=== PATIENT | male | born 1950 | race African-American/Black ===

== ENCOUNTER 2024-02-19 17:39 | Inpatient (IN) | payer MEDICARE, MEDICAID ==
[~2024-02-19] VITALS: Ht 175.3 cm; Wt 104.3 kg
[2024-02-19 18:06] LABS: BASOPHILS % 0.6 % (0.0-2.0); EOSINOPHILS % 0.1 % (0.0-5.0); HEMATOCRIT. 36.9 % (42.0-52.0); HEMOGLOBIN. 11.8 g/dL (14.0-18.0); LYMPHOCYTES % 22.8 % (20.0-50.0); MEAN CORPUSCULAR HEMOGLOBIN 28.2 pg (28.0-32.0); MEAN CORPUSCULAR VOLUME 88.1 fL (80.0-94.0); MEAN PLATELET VOLUME 8.2 fl (7.4-10.4); MONOCYTES % 7.2 % (2.0-8.0); NEUTROPHILS % 69.3 % (40.0-76.0); PLATELET 742 x1000/uL (130-400); RED BLOOD CELL COUNT 4.19 mill/uL (4.7-6.1); RED CELL DISTRIBUTION WIDTH 17.1 % (11.6-14.6); WHITE BLOOD COUNT 14.6 x1000/uL (4.5-11.0)
[2024-02-19 18:09] LABS: CHLORIDE 98 mEq/L (98-107); POTASSIUM 3.5 mEq/L (3.5-5.1); SODIUM 133 mEq/L (136-145)
[2024-02-19 18:10] LABS: CALCIUM 9.8 mg/dL (8.7-10.4); CARBON DIOXIDE 24 mEq/L (21-32)
[2024-02-19 18:15] LABS: CREATININE 1.1 mg/dL (0.6-1.3); GLUCOSE 146 mg/dL (70-105); UREA NITROGEN BLOOD 28 mg/dL (9-23)
[2024-02-19] MEDS: SODIUM CHLORIDE 0.9% 1000ML BAG (SEPSIS BOLUS) IV ONE (18:26)
[2024-02-19] MEDS: PIPERACILLIN/TAZO 3.375G/50ML 50 ML IV SCH (22:21)
[2024-02-20] MEDS ORDERED: LEVO150T8 MT (01:25)
[2024-02-20] MEDS ORDERED: NA P230E RC (01:25)
[2024-02-20] MEDS ORDERED: BISA10SU62 RC (01:25)
[2024-02-20] MEDS ORDERED: MOM PO (01:25)
[2024-02-20] MEDS ORDERED: LORA10TA7 PO (01:25)
[2024-02-20] MEDS ORDERED: ASCO500C18 MT (01:25)
[2024-02-20] MEDS ORDERED: MELA1TAB28 MT (01:25)
[2024-02-20] MEDS ORDERED: APIX5TAB PO (01:25)
[2024-02-20] MEDS ORDERED: FINA5TAB11 MT (01:25)
[2024-02-20] MEDS ORDERED: BICT1TAB PO (01:25)
[2024-02-20] MEDS ORDERED: ATOR10TA69 PO (01:25)
[2024-02-20] MEDS ORDERED: MULT-230 MT (02:05)
[2024-02-20] MEDS ORDERED: PREG75CA PO (02:05)
[2024-02-20] MEDS ORDERED: OXYC-485 PO (02:05)
[2024-02-20] MEDS ORDERED: OXYC5CAP22 PO (02:05)
[2024-02-20] MEDS ORDERED: NALO4SPR BOTHNSTRLS (02:05)
[2024-02-20] MEDS ORDERED: MUPI15CR11 TP (02:05)
[2024-02-20] MEDS ORDERED: COLL30OI TP (02:05)
[2024-02-20] MEDS ORDERED: MUPI1OIN4 TP (02:05)
[2024-02-20] MEDS ORDERED: DYZ MT (02:10)
[2024-02-20] MEDS ORDERED: ONDANSETRON HCL 4MG/2ML INJ IV PRN (07:00)
[2024-02-20] MEDS ORDERED: CLONIDINE 0.1MG TABLET PO PRN (07:00)
[2024-02-20] MEDS ORDERED: ACETAMINOPHEN 325MG TABLET PO PRN (07:00)
[2024-02-20] MEDS ORDERED: NITROGLYCERIN 0.4MG TABLET SL SL PRN (07:00)
[2024-02-20] MEDS ORDERED: GUAIFENESIN 200MG/10ML SUGAR FREE UDC PO PRN (07:00)
[2024-02-20] MEDS ORDERED: MAGNESIUM/ALUMINUM HYDROXIDE/SIMETHICONE 30ML UDC PO PRN (07:00)
[2024-02-20] MEDS ORDERED: IPRATROPIUM/ALBUTEROL 0.5-3(2.5)MG/3ML NEB NEB PRN (07:00)
[2024-02-20 10:44] LABS: IRON 22 ug/dL (65-175)
[2024-02-20 10:45] LABS: TRIGLYCERIDE 79 mg/dL (0-150)
[2024-02-20 10:46] LABS: LDL CHOLESTEROL 76 mg/dL (5-100)
[2024-02-20 10:47] LABS: CHOLESTEROL 110 mg/dL (<200); HDL CHOLESTEROL 24 mg/dL (>55)
[2024-02-20] MEDS: VANCOMYCIN 1.5GM/250ML IV NR (10:48)
[2024-02-20] MEDS: MEROPENEM 1G/100ML 100 ML IV SCH (10:48)
[2024-02-20] MEDS: LACTATED RINGERS 1,000 ML IV SCH (10:49)
[2024-02-20 10:50] LABS: T4 FREE 1.54 ng/dL (0.89-1.76); THYROID STIMULATING HORMONE 4.94 uIU/mL (0.55-4.78)
[2024-02-20] MEDS: ENOXAPARIN 40MG/0.4ML SYR SUBCUT SCH (10:55)
[2024-02-20] MEDS: ASCORBIC ACID 500 MG TABLET PO SCH (10:56)
[2024-02-20] MEDS: FAMOTIDINE 20MG TABLET PO SCH (10:56)
[2024-02-20] MEDS: DOCUSATE SODIUM 100MG CAPSULE PO PRN (10:57)
[2024-02-20 11:10] LABS: FOLIC ACID (FOLATE) SERUM > 20.00 ng/mL (>5.38)
[2024-02-20 11:11] LABS: VITAMIN B12 SERUM 361 pg/mL (211-911)
[2024-02-20 11:40] LABS: TOTAL IRON BINDING CAPACITY > 670 ug/dl (250-425)
[2024-02-20] MEDS: KETOROLAC 15MG/ML VIAL IV PRN (11:53)
[2024-02-20] MEDS: ZOLPIDEM TARTRATE 5MG TABLET PO PRN (12:06)
[2024-02-20] MEDS: ZINC SULFATE 220 MG ( 50 ) CAPSULE PO SCH (15:44)
[2024-02-20 17:07] LABS: CREATINE KINASE 358 IU/L (46-171)
[2024-02-20 17:09] LABS: CREATINE KINASE MB FRACTION 1.2 ng/mL (0.5-3.6)
[2024-02-20 17:10] LABS: TROPONIN I HIGH SENSITIVITY 4 ng/L (3.0-53)
[2024-02-20 19:00] VITALS: BP 98/62; PULSE 97; RESP 18; TEMP 36.9474; O2SAT 95
[2024-02-20 20:00] VITALS: BP 108/55; PULSE 81; RESP 18; TEMP 35.61396; O2SAT 100
[2024-02-20] MEDS: VANCOMYCIN 750MG/150ML (BAXTER) IV SCH (21:40)
[2024-02-21] VITALS: BP 147/105; PULSE 84; RESP 18; TEMP 36.83628; O2SAT 96
[2024-02-21 04:00] VITALS: BP 97/64; PULSE 89; RESP 18; TEMP 36.28068; O2SAT 98
[2024-02-21 06:26] LABS: CHLORIDE 103 mEq/L (98-107); POTASSIUM 2.9 mEq/L (3.5-5.1); SODIUM 136 mEq/L (136-145)
[2024-02-21 06:28] LABS: CREATINE KINASE MB FRACTION 0.5 ng/mL (0.5-3.6)
[2024-02-21 06:30] LABS: CALCIUM 9.2 mg/dL (8.7-10.4); CARBON DIOXIDE 24 mEq/L (21-32)
[2024-02-21 06:33] LABS: ALANINE AMINOTRANSFERASE 33 IU/L (10-49)
[2024-02-21 06:35] LABS: BASOPHILS % 0.4 % (0.0-2.0); CREATININE 0.7 mg/dL (0.6-1.3); EOSINOPHILS % 0.9 % (0.0-5.0); GLUCOSE 125 mg/dL (70-105); HEMATOCRIT. 31.4 % (42.0-52.0); HEMOGLOBIN. 10.2 g/dL (14.0-18.0); LYMPHOCYTES % 16.9 % (20.0-50.0); MEAN CORPUSCULAR HEMOGLOBIN 28.6 pg (28.0-32.0); MEAN CORPUSCULAR HGB CONC 32.5 g/dL (31.0-37.0); MEAN CORPUSCULAR VOLUME 87.8 fL (80.0-94.0); MEAN PLATELET VOLUME 8.4 fl (7.4-10.4); MONOCYTES % 7.8 % (2.0-8.0); PLATELET 600 x1000/uL (130-400); RED BLOOD CELL COUNT 3.58 mill/uL (4.7-6.1); RED CELL DISTRIBUTION WIDTH 17.5 % (11.6-14.6); UREA NITROGEN BLOOD 18 mg/dL (9-23); WHITE BLOOD COUNT 11.2 x1000/uL (4.5-11.0)
[2024-02-21 06:36] LABS: ALBUMIN 3.5 g/dL (3.2-4.8); ASPARTATE AMINOTRANSFERASE 43 IU/L (<34)
[2024-02-21 06:37] LABS: BILIRUBIN TOTAL 0.7 mg/dL (0.1-1.0); CREATINE KINASE 166 IU/L (46-171); PHOSPHORUS 3.1 mg/dL (2.5-4.9); PROTEIN TOTAL 6.8 g/dL (6.0-8.3)
[2024-02-21 06:49] LABS: TROPONIN I HIGH SENSITIVITY < 4 ng/L (3.0-53)
[2024-02-21 08:00] VITALS: BP 97/55; PULSE 81; RESP 18; TEMP 36.61404; O2SAT 100
[2024-02-21 12:00] VITALS: BP 111/57; PULSE 66; RESP 18; TEMP 36.50292; O2SAT 97
[2024-02-21 13:07] LABS: ABSOLUTE LYMPHOCYTES 3.2 x10E3/uL (0.7-3.1); ABSOLUTE MONOCYTES 1.1 x10E3/uL (0.1-0.9); ABSOLUTE NEUTROPHILS 11.3 x10E3/uL (1.4-7.0); BASOPHILS 0 % (Not Estab.); EOSINOPHILS 0 % (Not Estab.); HEMATOCRIT 37.4 % (37.5-51.0); HEMOGLOBIN 11.4 g/dL (13.0-17.7); IMMATURE GRANULOCYTES 1 % (Not Estab.); IMMATURE GRANULOCYTES ABSOLUTE 0.1 x10E3/uL (0.0-0.1); LYMPHOCYTES 20 % (Not Estab.); MEAN CORPUSCULAR HEMOGLOBIN 28.1 pg (26.6-33.0); MEAN CORPUSCULAR HGB CONC. 30.5 g/dL (31.5-35.7); MEAN CORPUSCULAR VOLUME 92 fL (79-97); MONOCYTES 7 % (Not Estab.); NEUTROPHILS 72 % (Not Estab.); PLATELETS 684 x10E3/uL (150-450); RBC 4.06 x10E6/uL (4.14-5.80); RED CELL DISTRIBUTION WIDTH 15.1 % (11.6-15.4); WBC 15.7 x10E3/uL (3.4-10.8)
[2024-02-21] MEDS ORDERED: LIDOCAINE HCL 1% 10 MG/ML 10ML VIAL ONE ×2 (13:10→14:05)
[2024-02-21] MEDS ORDERED: IOHEXOL-300 50 ML BOTTLE IV ONE (13:51)
[2024-02-21] MEDS: SODIUM HYPOCHLORITE (0.25%) 480ML SOLUTION (HALF STRENGTH) TOP SCH (14:46)
[2024-02-21] MEDS ORDERED: POTASSIUM CHLORIDE 20 MEQ in DEXT 5% WATER 90 ML IV ONE (15:30)
[2024-02-21] MEDS: POTASSIUM CHLORIDE 20MEQ TABLET SR PO NR (15:54)
[2024-02-21 16:00] VITALS: BP 160/107; PULSE 105; RESP 18; TEMP 36.50292; O2SAT 97
[2024-02-21 17:06] LABS: % CD 3 POS. LYMPHOCYTES 57.3 % (57.5-86.2); % CD 4 POS. LYMPHOCYTES 27.1 % (30.8-58.5); % CD 8 POS. LYMPH 35.4 % (12.0-35.5); ABSOLUTE CD 3 1834 /uL (622-2402); ABSOLUTE CD 4 HELPER 867 /uL (359-1519); ABSOLUTE CD 8 SUPPRESSOR 1133 /uL (109-897); CD4/CD8 RATIO 0.77 (0.92-3.72)
[2024-02-21] MEDS: KCL 20MEQ/100ML X 2 FOR TOTAL KCL 40MEQ/200ML IV SCH (17:17)
[2024-02-21 20:00] VITALS: BP 109/74; PULSE 60; RESP 18; TEMP 37.33632; O2SAT 97
[2024-02-22] VITALS: BP 107/70; PULSE 84; RESP 20; TEMP 37.44744; O2SAT 100
[2024-02-22 04:00] VITALS: BP 112/78; PULSE 80; RESP 20; TEMP 37.16964; O2SAT 100
[2024-02-22 06:39] LABS: CHLORIDE 104 mEq/L (98-107); POTASSIUM 4.3 mEq/L (3.5-5.1); SODIUM 135 mEq/L (136-145)
[2024-02-22 06:40] LABS: CALCIUM 9.1 mg/dL (8.7-10.4); CARBON DIOXIDE 22 mEq/L (21-32)
[2024-02-22 06:45] LABS: CREATININE 0.6 mg/dL (0.6-1.3); GLUCOSE 108 mg/dL (70-105); UREA NITROGEN BLOOD 12 mg/dL (9-23)
[2024-02-22 08:00] VITALS: BP 100/58; PULSE 60; RESP 18; TEMP 37.11408; O2SAT 97
[2024-02-22 12:04] VITALS: BP 104/53; PULSE 90; RESP 18; TEMP 37.05852; O2SAT 99
[2024-02-22] MEDS: KETOROLAC 15MG/ML VIAL IV PRN (12:09)
[2024-02-22 16:00] VITALS: BP 115/70; PULSE 65; RESP 18; TEMP 36.61404; O2SAT 96
[2024-02-22 20:00] VITALS: BP 99/61; PULSE 83; RESP 18; TEMP 36.22512
[2024-02-23] VITALS: BP 100/72; PULSE 82; RESP 20; TEMP 36.22512
[2024-02-23 04:00] VITALS: BP 101/62; PULSE 85; RESP 20; TEMP 36.33624; O2SAT 96
[2024-02-23 08:00] VITALS: BP 115/59; PULSE 75; RESP 20; TEMP 36.61404; O2SAT 100
[2024-02-23 12:00] VITALS: BP 103/50; PULSE 74; RESP 20; TEMP 36.3918; O2SAT 100
[2024-02-23] MEDS: ACETAMINOPHEN 325MG TABLET PO PRN (12:19)
[2024-02-23] MEDS: CEFTRIAXONE 2GM/50ML 50 ML IV SCH (12:19)
[2024-02-23 16:00] VITALS: BP 113/75; PULSE 75; RESP 20; TEMP 36.61404; O2SAT 100
[2024-02-23 20:00] VITALS: BP 96/54; PULSE 83; RESP 18; TEMP 37.39188; O2SAT 95
[2024-02-24] VITALS: BP 102/54; PULSE 79; RESP 18; TEMP 36.61404; O2SAT 99
[2024-02-24 04:00] VITALS: BP 130/81; PULSE 76; RESP 18; TEMP 36.55848; O2SAT 99
[2024-02-24 08:00] VITALS: BP 98/56; PULSE 80; RESP 18; TEMP 36.61404; O2SAT 100
[2024-02-24] MEDS ORDERED: LIDOCAINE HCL/EPINEPHRINE 1%-EPI 1:100,000 10ML VIAL INFIL NR (08:30)
[2024-02-24 12:00] VITALS: BP 104/62; PULSE 80; RESP 18; TEMP 37.503; TEMP 37.50300; O2SAT 98
[2024-02-24 12:29] VITALS: BP 104/62; PULSE 80; TEMP 99.5; O2SAT 98
[2024-02-24 13:17] VITALS: BP 104/62; PULSE 80; RESP 18
[2024-02-24] MEDS: TRAMADOL 50MG TABLET PO SCH (13:17)
== END 2024-02-24 14:36 | DRG 853 ==
LOC: ER 17:39 → EDBEDREQ 18:38 → 5WST 20:49 → EDBEDREQTM 20:52 → EDBEDREQ 20:52 → 8WST 02-20 18:31
PROVIDERS: ADMIT Internal Medicine; ATTEND Internal Medicine
PROC: 02HV33Z Insertion of Infusion Device into Superior Vena Cava, Percutaneous Approach (ICD-10-PCS; 2024-02-21)
PROC: B5181ZA Fluoroscopy of Superior Vena Cava using Low Osmolar Contrast, Guidance (ICD-10-PCS; 2024-02-21)
PROC: B548ZZA Ultrasonography of Superior Vena Cava, Guidance (ICD-10-PCS; 2024-02-21)
PROC: 0KBP0ZZ Excision of Left Hip Muscle, Open Approach (ICD-10-PCS; principal; 2024-02-24)
PROC: 0KBN0ZZ Excision of Right Hip Muscle, Open Approach (ICD-10-PCS; 2024-02-24)
DX: A41.9 Sepsis, unspecified organism (principal); L89.154 Pressure ulcer of sacral region, stage 4; E87.1 Hypo-osmolality and hyponatremia; I50.9 Heart failure, unspecified; I11.0 Hypertensive heart disease with heart failure; D63.8 Anemia in other chronic diseases classified elsewhere
CPT/HCPCS: 36415; 36573; 71045; 72170; 76770; 80048; 80053; 80061; 80202; 82550; 82553; 82607; 82746; 83036; 83540; 83550; 83605; 83735; 84100; 84439; 84443; 84484; 85025; 86359; 86360; 87070; 87186; 93005; 93306; 93970; 99291; C1725; C1769; J0696; J1650; J1885; J2185; J2543; J3370; J3480; J3490; J7030; J7120; Q9967